=== PATIENT | male | born 1980 | race Caucasian/White ===

== ENCOUNTER 2016-08-24 03:33 | Outpatient (CLI) | payer MEDICARE | END 2016-08-24 03:34 | disposition critical access hospital (66) | DX: R10.9 Unspecified abdominal pain (principal) | CPT/HCPCS: A0425; A0427 ==

== ENCOUNTER 2016-08-24 04:03 | Emergency (ER) | payer MEDICARE ==
[2016-08-24] MEDS ORDERED: SODIUM CHLORIDE 0.9% 1,000 ML IV ONE (04:10)
--- NOTE | 2016-08-24 04:10 | ED Physician Documentation ---
PD HPI ABD PAIN - Stated complaint Stated Complaint: ABD PX - History obtained from History obtained from: Patient, EMS - History of Present Illness Timing - onset: How many days ago (2) Timing - details: Gradual onset, Still present Quality: Cramping, Aching Location: All over / everywhere, LLQ Worsened by: Eating Associated symptoms: Nausea, Constipation. No: Fever, Vomiting, Near syncope / syncope Similar symptoms before: Work up / diagnostics, Treatment, Follow up Recently seen: Not recently seen - Additional information Additional information: Patient is a 36 year old male with multiple abdominal surgeries and a history of crohns who is presenting to the emergency department for abdominal pain, nausea and constipation. Patient states that his last normal bowel movement was over two days ago. He reports that he is still able to pass gas. patient reports that it feels like he is obstructed. Enroute with ems patient was treated with 200 fentanyl and zofran. Patient states that he did do meth yesterday. Review of Systems Constitutional: denies: Fever, Chills, Weight Loss Eyes: denies: Loss of vision Throat: denies: Dental pain / toothache, Oral lesions / sores Cardiac: denies: Chest pain / pressure GI: reports: Abdominal Pain, Nausea, Constipation. denies: Vomiting, Diarrhea : denies: Dysuria, Unable to Void Skin: denies: Rash Musculoskeletal: denies: Neck pain, Back pain Neurologic: denies: Generalized weakness, Focal weakness, Numbness Psychiatric: denies: Depressed, Suicidal Immunocompromised: denies: Immunocompromised PD PAST MEDICAL HISTORY - Past Medical History Cardiovascular: None Respiratory: None Neuro: None Endocrine/Autoimmune: None GI: Crohn's disease, Other : None HEENT: None Psych: Anxiety, Panic attacks Musculoskeletal: Rheumatoid arthritis Derm: None - Past Surgical History Past Surgical History: Yes General: Bowel surgery Ortho: Other Derm: Other - Present Medications Home Medications: Ambulatory Orders Medication Instructions Recorded Confirmed Paroxetine HCl [Paxil] 1 tab PO DAILY 07/24/15 02/06/16 Sulfamethoxazole/Trimethoprim 1 each PO BID #14 tablet 02/06/16 [Sulfamethoxazole-Tmp Ds Tablet] oxyCODONE/ACET 5/325 [Percocet 5 1 - 2 each PO Q4-6H PRN #20 tablet 02/06/16 mg/325 mg] Ondansetron Odt [Zofran] 4 mg TL Q6H PRN #14 tablet 08/24/16 - Allergies Allergies/Adverse Reactions: Allergies Allergy/AdvReac Type Severity Reaction Status Date / Time esomeprazole AdvReac Severe Hallucinati Verified 08/24/16 04:11 ons morphine AdvReac Intermediate Hives Verified 08/24/16 04:11 - Social History Does the pt smoke?: Yes Smoking Status: Current some day smoker Does the pt drink ETOH?: No Does the pt have substance abuse?: No - Immunizations Immunizations are current?: Yes - POLST Patient has POLST: No PD ED PE NORMAL - Vitals Vital signs reviewed: Yes - General General: Alert and oriented X 3, No acute distress, Well developed/nourished - HEENT HEENT: Atraumatic, PERRL, Pharynx benign - Neck Neck: Supple, no meningeal sign, No JVD - Respiratory Respiratory: No respiratory distress, Clear bilaterally - Abdomen Abdomen: Soft - Derm Derm: Normal color, Warm and dry, No rash - Extremities Extremities: No deformity, No tenderness to palpate, Normal ROM s pain - Neuro Neuro: Alert and oriented X 3, roller print tender 2-12 intact, No motor deficit, No sensory deficit, Normal speech - Psych Psych: Normal mood, Normal affect PD ED PE EXPANDED - HEENT HEENT: Dry mucous membranes - Cardiac Cardiac: Tachy - Abdomen Abdomen: Tender to palpation, LUQ, Generalized/diffuse, Surgical scars, Other ( obese abdomen with multiple surgical scars and supraumbilical hernia). No: Distended Results - Vitals Vitals: Vital Signs - 24 hr 08/24/16 08/24/16 08/24/16 04:07 04:22 04:33 Temperature 37.1 C Heart Rate 129 H 130 H 131 H Respiratory 19 18 19 Rate Blood Pressure 139/88 H O2 Saturation 100 96 100 08/24/16 04:37 Temperature Heart Rate 129 H Respiratory Rate Blood Pressure 153/98 H O2 Saturation 99 Oxygen O2 Source Room air - Labs Labs: Laboratory Tests 08/24/16 08/24/16 04:18 04:18 WBC 13.3 H RBC 4.75 Hgb 14.8 Hct 43.0 MCV 90.4 MCH 31.2 H MCHC 34.5 RDW 13.7 Plt Count 286 MPV 6.2 L Neut # 10.0 H Lymph # 1.9 [place] # 1.1 H Eos # 0.0 Baso # 0.2 H Absolute Nucleated RBC 0.00 Nucleated RBCs 0.0 Sodium 137 Potassium 3.7 Chloride 102 Carbon Dioxide 24 Anion Gap 11.0 BUN 18 Creatinine 1.1 Estimated GFR (MDRD) 76 L Glucose 130 H Calcium 9.5 Phosphorus 4.6 Magnesium 2.0 Total Bilirubin 0.9 AST 49 H ALT 28 Alkaline Phosphatase 54 Total Protein 7.9 Albumin 5.0 Globulin 2.9 Albumin/Globulin Ratio 1.7 Lipase 19 L - Rads (name of study) ct abdomen and pelvis Radiology: Final report received (no bowel obstruction, rectus diastases, no new abnormality) PD MEDICAL DECISION MAKING - ED course Complexity details: reviewed old records, reviewed results, re-evaluated patient , considered differential, d/w patient ED course: Patient was seen and examined at bedside. labs were drawn, patient was started on a fluid bolus. Patient was treated with zofran and given oral contrast. When patient's labs came back he was found to have a leukocytosis. Imaging was ordered. When patient returned from imaging the results were reviewed. there was no acute abnormalities found on imaging. Patient did admit to recent meth use which would explain the persistent tachycardia. Patient required no further work up and was stable for discharge with outpatient follow up. Departure - Departure Disposition: 01 Home, Self Care Clinical Impression: Abdominal pain, Constipation Condition: Good Instructions: ED Abdominal Pain Unkn Cause Follow-Up: primary,care provider [Other] - Within 3 Days Prescriptions: Ondansetron Odt [Zofran] 4 mg TL Q6H PRN #14 tablet PRN Reason: Nausea / Vomiting Comments: Your diagnostics today were within normal limits. there were no new abnormalities on your imaging. the pain is likely at least part due to drug use as well as constipation. It is important that you stay well hydrated and adhere to good bowel hygiene including diet. You should follow up with your doctor this week. You can return to the emergency department at any time for new, worsening or uncontrollable symptoms.
[2016-08-24] MEDS ORDERED: ONDANSETRON 4 MG/2 ML VIAL ONE (04:15)
[2016-08-24] MEDS ORDERED: ONDANSETRON 4 MG/2 ML VIAL IVP STA (04:15)
[2016-08-24 04:51] LABS: BASOPHILS # (AUTO) 0.2 10^3/uL (0.0-0.1); BASOPHILS % (AUTO) 1.9 %; EOSINOPHILS % (AUTO) 0.4 %; HGB - HEMOGLOBIN 14.8 g/dL (14.0-18.0); LYMPHOCYTES # (AUTO) 1.9 10^3/uL (1.5-3.5); LYMPHOCYTES % (AUTO) 13.9 %; MEAN CORPUSCULAR HEMOGLOBIN 31.2 pg (27.0-31.0); MEAN CORPUSCULAR HGB CONC 34.5 g/dL (32.0-36.0); MEAN CORPUSCULAR VOLUME 90.4 fL (80.0-94.0); MEAN PLATELET VOLUME 6.2 fL (7.4-11.4); MONOCYTES # (AUTO) 1.1 10^3/uL (0.0-1.0); MONOCYTES % (AUTO) 8.5 %; NEUTROPHILS % (AUTO) 75.3 %; RED BLOOD COUNT 4.75 10^6/uL (4.70-6.10); RED CELL DISTRIBUTION WIDTH 13.7 % (12.0-15.0); UNCORRECTED WHITE BLOOD COUNT 13.3 x10^3/uL; WHITE BLOOD COUNT 13.3 x10^3/uL (4.8-10.8)
[2016-08-24 04:54] LABS: ALBUMIN/GLOBULIN RATIO 1.7 (1.0-2.2); BILIRUBIN,TOTAL 0.9 mg/dL (0.2-1.0); CALCIUM 9.5 mg/dL (8.5-10.3); CREATININE 1.1 mg/dL (0.6-1.2); PHOSPHORUS 4.6 mg/dL (2.5-4.6); POTASSIUM 3.7 mmol/L (3.5-5.0); TOTAL PROTEIN 7.9 g/dL (6.7-8.2)
[2016-08-24] MEDS ORDERED: IOPAMIDOL-300 100 ML VIAL IVP ONE (05:41)
[2016-08-24] MEDS ORDERED: IOPAMIDOL-300 50 ML VIAL PO ONE (05:41)
--- NOTE | 2016-08-24 06:06 | CT Preliminary Report ---
Exam: CT Abdomen/Pelvis W/ IMPRESSION: 1. No bowel obstruction seen. 2. Rectus diastases. Soft tissue thickening previously seen in the abdominal wall has essentially res olved. 3. No new abnormality seen. [facility] SITE ID: [id number]
--- NOTE | 2016-08-24 06:08 | CT Report ---
EXAM: CT ABDOMEN AND PELVIS EXAM DATE: 08/24/2016 05:23 AM. CLINICAL HISTORY: Multiple abdominal surgeries, abdominal pain, nausea and constipation. COMPARISONS: 10/07/2014. TECHNIQUE: Routine helical CT imaging was performed through the abdomen and pelvis. IV contrast: Mary Anne onic. Enteric contrast: Yes. Reconstructions: Coronal and sagittal. In accordance with CT protocol optimization, one or more of the following dose reduction techniques w ere utilized for this exam: automated exposure control, adjustment of mA and/or KV based on patient s ize, or use of iterative reconstructive technique. FINDINGS: Lung Bases: Unremarkable. Liver: No focal lesion identified. Gallbladder/Bile Ducts: Unremarkable. Spleen: Normal. Pancreas: Normal. Adrenal Glands: Normal. Kidneys: Normal. No masses or hydronephrosis. Peritoneal Cavity/Bowel: Again seen is postoperative change in the anterior abdominal wall with rectu s diastases. Soft tissue thickening previously seen in this area has resolved. No bowel obstruction i s seen. No diverticulitis is noted. No free air or free fluid is identified. No lymphadenopathy seen. Appendix is not seen. No evidence of appendicitis. Pelvic Organs: Normal. The bladder and visualized pelvic organs are within normal limits. Vasculature: No aneurysms or other significant abnormality. Bones: No significant abnormality. Other: None. IMPRESSION: 1. No bowel obstruction seen. 2. Rectus diastases. Soft tissue thickening previously seen in the abdominal wall has essentially res olved. 3. No new abnormality seen. [facility] Referring Provider Line: [phone] SITE ID: [id number]
[2016-08-24 06:13] VITALS: BP 160/91
== END 2016-08-24 06:18 | disposition home or self-care (01) ==
LOC: ED 04:03
DX: R10.84 Generalized abdominal pain (principal); K59.00 Constipation, unspecified; R11.0 Nausea; D72.829 Elevated white blood cell count, unspecified; F15.90 Other stimulant use, unspecified, uncomplicated; Z87.19 Personal history of other diseases of the digestive system; M06.9 Rheumatoid arthritis, unspecified; F17.200 Nicotine dependence, unspecified, uncomplicated
CPT/HCPCS: 36415; 74177; 80053; 83690; 83735; 84100; 85025; 96361; 96374; 99284; 99285; Q9967

== ENCOUNTER 2016-09-29 23:02 | Emergency (ER) | payer MEDICARE ==
--- NOTE | 2016-09-29 23:36 | ED Physician Documentation ---
History of Present Illness - Stated complaint Stated Complaint: SICK - Chief complaint Chief Complaint: Abd Pain - History obtained from History obtained from: Patient - History of Present Illness Timing: Yesterday Pain level now: 6 Improved by: no ameliorating factors Worsened by: no exacerbating factors - Additonal information Additional information: c/o upper abdominal pain, diarrhea since yesterday. Also c/o painful rash on his scalp x few days Review of Systems Constitutional: denies: Fever, Chills, Sweats Cardiac: reports: Reviewed and negative Respiratory: reports: Reviewed and negative GI: reports: Abdominal Pain, Diarrhea. denies: Nausea, Vomiting, Constipation : denies: Dysuria, Frequency Skin: reports: Rash PD PAST MEDICAL HISTORY - Past Medical History Cardiovascular: None Respiratory: None Neuro: None Endocrine/Autoimmune: None GI: Crohn's disease, Other : None HEENT: None Psych: Anxiety, Panic attacks Musculoskeletal: Rheumatoid arthritis Derm: None - Past Surgical History Past Surgical History: Yes General: Bowel surgery Ortho: Other Derm: Other - Present Medications Home Medications: Ambulatory Orders Medication Instructions Recorded Confirmed Paroxetine HCl [Paxil] 1 tab PO DAILY 07/24/15 02/06/16 Sulfamethox/Trimeth 800/160 1 each PO BID #14 tablet 09/30/16 09/30/16 [Bactrim Ds 800/160] - Allergies Allergies/Adverse Reactions: Allergies Allergy/AdvReac Type Severity Reaction Status Date / Time morphine AdvReac Intermediate Hives Verified 09/29/16 23:18 - Social History Does the pt smoke?: Yes Smoking Status: Current some day smoker Does the pt drink ETOH?: No Does the pt have substance abuse?: No - Immunizations Immunizations are current?: Yes - POLST Patient has POLST: No PD ED PE NORMAL - Vitals Vital signs reviewed: Yes - General General: Alert and oriented X 3, Well developed/nourished, Other (hyperkinetic movements. tangential answers, at times requires refocusing on questions being asked of him) - HEENT HEENT: PERRL, EOMI, Moist mucous membranes - Neck Neck: Supple, no meningeal sign - Cardiac Cardiac: RRR, No murmur - Respiratory Respiratory: No respiratory distress, Clear bilaterally - Abdomen Abdomen: Soft, Non tender, Non distended - Back Back: No CVA TTP - Derm Derm: Warm and dry PD ED PE EXPANDED - Derm SKin visual: 1 - rash (2-3cm diameter raised, confluent erythema with mild tenderness but no discharge or fluctuance) Results - Vitals Vitals: Vital Signs - 24 hr 09/29/16 09/30/16 09/30/16 23:12 00:22 01:08 Temperature 37.2 C 36.2 C L Heart Rate 139 H 110 H 85 Respiratory 24 22 16 Rate Blood Pressure 114/90 H 134/89 H 124/80 O2 Saturation 97 98 98 Oxygen O2 Source Room air - Labs Labs: Laboratory Tests 09/30/16 09/30/16 00:00 00:00 WBC 13.0 H RBC 4.90 Hgb 15.1 Hct 44.0 MCV 89.8 MCH 30.8 MCHC 34.2 RDW 13.2 Plt Count 246 MPV 6.1 L Neut # 9.9 H Lymph # 2.2 [place] # 0.8 Eos # 0.1 Baso # 0.0 Absolute Nucleated RBC 0.01 Nucleated RBCs 0.0 Sodium 136 Potassium 3.6 Chloride 103 Carbon Dioxide 23 Anion Gap 10.0 BUN 20 Creatinine 0.9 Estimated GFR (MDRD) 95 Glucose 157 H Calcium 10.0 Total Bilirubin 1.0 AST 36 ALT 37 Alkaline Phosphatase 61 Total Protein 7.8 Albumin 5.1 Globulin 2.7 Albumin/Globulin Ratio 1.9 Lipase 21 L PD MEDICAL DECISION MAKING - ED course Complexity details: reviewed old records, reviewed results, re-evaluated patient , considered differential, d/w patient ED course: Patient reported adequate symptoms relief after IV dilaudid, ativan, and IV fluids. He appeared significantly less hyperkinetic and was more clear and focused in his conversation with me. He expressed that he was comfortable with d /c. Departure - Departure Disposition: 01 Home, Self Care Clinical Impression: Abdominal pain Qualifiers: Qualified Code(s): R10.84 - Generalized abdominal pain Condition: Good Instructions: Abdominal Pain Follow-Up: Pati Camilo MD [Primary Care Provider] - Prescriptions: Sulfamethox/Trimeth 800/160 [Bactrim Ds 800/160] 1 each PO BID #14 tablet Discharge Date/Time: 09/30/16 01:08
[2016-09-29] MEDS ORDERED: LORazepam 2 MG/ML SYRINGE IVP STA (23:56)
[2016-09-29] MEDS ORDERED: HYDROmorphone 1 MG/ML SYRINGE IVP STA (23:58)
[2016-09-29] MEDS ORDERED: SULFAMETH/TRIMETH DS 800/160 MG TABLET PO STA (23:58)
[2016-09-29] MEDS ORDERED: SODIUM CHLORIDE 0.9% 1,000 ML IV STA (23:58)
[2016-09-30] MEDS ORDERED: HYDROmorphone 1 MG/ML SYRINGE ONE (00:07)
[2016-09-30] MEDS ORDERED: SULFAMETH/TRIMETH DS 800/160 MG TABLET PO ONE (00:08)
[2016-09-30] MEDS ORDERED: LORazepam 2 MG/ML SYRINGE ONE (00:08)
[2016-09-30 00:10] LABS: BASOPHILS % (AUTO) 0.3 %; EOSINOPHILS # (AUTO) 0.1 10^3/uL (0.0-0.7); EOSINOPHILS % (AUTO) 0.7 %; HGB - HEMOGLOBIN 15.1 g/dL (14.0-18.0); LYMPHOCYTES # (AUTO) 2.2 10^3/uL (1.5-3.5); LYMPHOCYTES % (AUTO) 16.7 %; MEAN CORPUSCULAR HEMOGLOBIN 30.8 pg (27.0-31.0); MEAN CORPUSCULAR HGB CONC 34.2 g/dL (32.0-36.0); MEAN CORPUSCULAR VOLUME 89.8 fL (80.0-94.0); MEAN PLATELET VOLUME 6.1 fL (7.4-11.4); MONOCYTES # (AUTO) 0.8 10^3/uL (0.0-1.0); MONOCYTES % (AUTO) 6.4 %; NEUTROPHILS # (AUTO) 9.9 10^3/uL (1.5-6.6); NEUTROPHILS % (AUTO) 75.9 %; RED CELL DISTRIBUTION WIDTH 13.2 % (12.0-15.0)
[2016-09-30 00:20] LABS: ALBUMIN/GLOBULIN RATIO 1.9 (1.0-2.2); CREATININE 0.9 mg/dL (0.6-1.2); POTASSIUM 3.6 mmol/L (3.5-5.0); TOTAL PROTEIN 7.8 g/dL (6.7-8.2)
[2016-09-30 01:11] VITALS: BP 124/80
== END 2016-09-30 01:08 | disposition home or self-care (01) ==
LOC: ED 23:02
DX: R10.84 Generalized abdominal pain (principal); R19.7 Diarrhea, unspecified; R21 Rash and other nonspecific skin eruption; K50.90 Crohn's disease, unspecified, without complications; M06.9 Rheumatoid arthritis, unspecified; F17.200 Nicotine dependence, unspecified, uncomplicated
CPT/HCPCS: 36415; 80053; 80306; 81001; 83690; 85025; 85651; 96361; 96374; 96375; 96376; 99283; 99284; A9270; J1170; J2060; 81003; 87086

== ENCOUNTER 2016-09-30 07:34 | Emergency (ER) | payer MEDICARE ==
--- NOTE | 2016-09-30 07:54 | ED Physician Documentation ---
PD HPI ABD PAIN - Stated complaint Stated Complaint: ABD PX - Chief complaint Chief Complaint: Abd Pain - History obtained from History obtained from: Patient - History of Present Illness Timing - onset: Yesterday Timing - duration: Days (1) Timing - details: Waxing and waning Quality: Cramping, Aching Location: All over / everywhere Radiation: No: Chest, Lower back Improved by: No: BM, Position Worsened by: Eating. No: Position, Palpation Associated symptoms: Nausea, Diarrhea (more copious and watery than he has had in the past with his UC.). No: Fever, Vomiting, Melena Similar symptoms before: Diagnosis (has had abd infections, adhesions with obstruction, prior colectomy due to UC/Crohns. Multiple abd surgeries, so has had various abd pain patterns in the past.) Recently seen: Emergency Dept (last night, with same, got meds in ED and felt better, but has cramps and more diarrhea this morning.) Review of Systems Constitutional: denies: Fever, Chills, Myalgias Nose: denies: Rhinorrhea / runny nose, Congestion Throat: denies: Sore throat Cardiac: denies: Chest pain / pressure Respiratory: denies: Dyspnea, Cough GI: reports: Abdominal Pain, Nausea, Diarrhea. denies: Abdominal Swelling, Vomiting, Constipation, Bloody / black stool : denies: Dysuria, Frequency Skin: reports: Lesions (scalp sore with local swelling and started Bactrim last night for it.). denies: Rash Psychiatric: reports: Anxiety. denies: Depressed, Suicidal PD PAST MEDICAL HISTORY - Past Medical History Past Medical History: Yes Cardiovascular: None Respiratory: None Neuro: None Endocrine/Autoimmune: None GI: Crohn's disease, Other : None HEENT: None Psych: Anxiety, Panic attacks Musculoskeletal: Rheumatoid arthritis Derm: None - Past Surgical History Past Surgical History: Yes General: Bowel surgery Ortho: Other Derm: Other - Present Medications Home Medications: Ambulatory Orders Medication Instructions Recorded Confirmed Paroxetine HCl [Paxil] 1 tab PO DAILY 07/24/15 02/06/16 Dexamethasone [Decadron] 4 mg PO DAILY #5 tablet 09/30/16 Diphenoxylate/Atropine [Lomotil] 1 each PO QID PRN #15 tablet 09/30/16 Ondansetron HCl [Zofran] 4 mg PO Q6H PRN #20 tablet 09/30/16 Sulfamethox/Trimeth 800/160 1 each PO BID #14 tablet 09/30/16 09/30/16 [Bactrim Ds 800/160] - Allergies Allergies/Adverse Reactions: Allergies Allergy/AdvReac Type Severity Reaction Status Date / Time morphine AdvReac Intermediate Hives Verified 09/29/16 23:18 - Social History Does the pt smoke?: Yes Smoking Status: Current some day smoker Does the pt drink ETOH?: No Does the pt have substance abuse?: No - Immunizations Immunizations are current?: Yes - POLST Patient has POLST: No PD ED PE NORMAL - Vitals Vital signs reviewed: Yes - General General: Alert and oriented X 3, Well developed/nourished, Other (anxious, fidgety and hyperdynamic (moving around a lot). Denies recent meth/drug use. ) - HEENT HEENT: Atraumatic, PERRL (nonicteric), Pharynx benign - Neck Neck: Supple, no meningeal sign, No adenopathy - Cardiac Cardiac: RRR (tachycardic though), No murmur - Respiratory Respiratory: Clear bilaterally - Abdomen Abdomen: Soft, Non tender, Non distended, No organomegaly. No: Normal bowel sounds (increased) - Male Male : Pt declined - Rectal Rectal: Deferred - Back Back: No CVA TTP - Derm Derm: Normal color, Warm and dry - Extremities Extremities: Normal ROM s pain, No edema, No calf tenderness / cord - Neuro Neuro: Alert and oriented X 3, No motor deficit, Normal speech - Psych Psych: Normal mood. No: Normal affect (moderately tweaky/restless. ) Results - Vitals Vitals: Vital Signs - 24 hr 09/30/16 09/30/16 07:37 11:08 Temperature 36.9 C Heart Rate 120 H 95 Respiratory 22 18 Rate Blood Pressure 124/81 H 109/58 L O2 Saturation 97 99 Oxygen O2 Source Room air - Labs Labs: Laboratory Tests 09/30/16 09/30/16 09/30/16 08:34 08:34 09:12 WBC 7.8 RBC 4.81 Hgb 14.7 Hct 43.1 MCV 89.6 MCH 30.6 MCHC 34.1 RDW 13.3 Plt Count 231 MPV 6.1 L Neut # 5.5 Lymph # 1.5 [place] # 0.7 Eos # 0.1 Baso # 0.0 Absolute Nucleated RBC 0.00 Nucleated RBCs 0.0 ESR 17 H Urine Color Urine Clarity Urine pH Ur Specific [place] Urine Protein Urine Glucose (UA) Urine Ketones Urine Occult Blood Urine Nitrite Urine Bilirubin Urine Urobilinogen Ur Leukocyte Esterase Urine RBC Urine WBC Ur Squamous Epith Cells Urine Bacteria Urine Casts Urine Mucus Ur Microscopic Review Urine Culture Comments Urine Opiates Screen NEGATIVE Ur Oxycodone Screen NEGATIVE Urine Methadone Screen NEGATIVE Ur Propoxyphene Screen NEGATIVE Ur Barbiturates Screen NEGATIVE Ur Tricyclics Screen NEGATIVE Ur Phencyclidine Scrn NEGATIVE Ur Amphetamine Screen POSITIVE H U Methamphetamines Scrn NEGATIVE U Benzodiazepines Scrn POSITIVE H Urine Cocaine Screen NEGATIVE U Cannabinoids Screen NEGATIVE 09/30/16 09:12 WBC RBC Hgb Hct MCV MCH MCHC RDW Plt Count MPV Neut # Lymph # [place] # Eos # Baso # Absolute Nucleated RBC Nucleated RBCs ESR Urine Color YELLOW Urine Clarity CLEAR Urine pH 6.0 Ur Specific [place] >=1.030 H Urine Protein TRACE Urine Glucose (UA) NEGATIVE Urine Ketones TRACE Urine Occult Blood MODERATE H Urine Nitrite NEGATIVE Urine Bilirubin NEGATIVE Urine Urobilinogen 0.2 (NORMAL) Ur Leukocyte Esterase NEGATIVE Urine RBC 6-10 H Urine WBC 0-3 Ur Squamous Epith Cells FEW Squamous Urine Bacteria Rare Urine Casts 6-10 Hyaline Casts Urine Mucus Marked Strands Ur Microscopic Review INDICATED Urine Culture Comments NOT INDICATED Urine Opiates Screen Ur Oxycodone Screen Urine Methadone Screen Ur Propoxyphene Screen Ur Barbiturates Screen Ur Tricyclics Screen Ur Phencyclidine Scrn Ur Amphetamine Screen U Methamphetamines Scrn U Benzodiazepines Scrn Urine Cocaine Screen U Cannabinoids Screen PD MEDICAL DECISION MAKING - ED course Complexity details: reviewed old records (did not have any diarrhea here, would have liked stool studies. He does have fidgety behavior but denies recent drug use. UTox is positive for amphet but not meth, consider false positive though his demeanor would suggest some withdrawal type issues. He does have prior GI problems, but does not have exam c/w obstruction nor acute abd at this time. ), reviewed results, considered differential (did not have any diarrhea here, would have liked stool studies. ), d/w patient Departure - Departure Disposition: 01 Home, Self Care Clinical Impression: Abdominal pain Diarrhea Qualifiers: Diarrhea type: unspecified type Qualified Code(s): R19.7 - Diarrhea, unspecified Condition: Stable Record reviewed to determine appropriate education?: Yes Follow-Up: Pati Camilo MD [Primary Care Provider] - Prescriptions: Dexamethasone [Decadron] 4 mg PO DAILY #5 tablet Diphenoxylate/Atropine [Lomotil] 1 each PO QID PRN #15 tablet PRN Reason: Diarrhea Ondansetron HCl [Zofran] 4 mg PO Q6H PRN #20 tablet PRN Reason: Nausea / Vomiting Comments: Drink lots of fluids. Tylenol 4 times daily for pain. Take prescribed medications. Decadron for 5 days, steroid in case this is flare of colitis. Lomotil for diarrhea as needed. Zofran if needed for nausea. Discharge Date/Time: 09/30/16 11:10
[2016-09-30] MEDS ORDERED: SODIUM CHLORIDE 0.9% 1,000 ML IV ONE (08:16)
[2016-09-30] MEDS ORDERED: ONDANSETRON 4 MG/2 ML VIAL IVP STA (08:17)
[2016-09-30] MEDS ORDERED: HYDROmorphone 1 MG/ML SYRINGE IVP STA ×2 (08:17→10:01)
[2016-09-30] MEDS ORDERED: DEXAMETHASONE 10 MG/ML VIAL IVP STA (08:17)
[2016-09-30] MEDS ORDERED: ONDANSETRON 4 MG/2 ML VIAL ONE (08:22)
[2016-09-30] MEDS ORDERED: DEXAMETHASONE 10 MG/ML VIAL ONE (08:22)
[2016-09-30] MEDS ORDERED: HYDROmorphone 1 MG/ML SYRINGE ONE ×2 (08:22→10:08)
[2016-09-30 08:48] LABS: BASOPHILS % (AUTO) 0.5 %; EOSINOPHILS # (AUTO) 0.1 10^3/uL (0.0-0.7); EOSINOPHILS % (AUTO) 1.1 %; HCT - HEMATOCRIT 43.1 % (42.0-52.0); HGB - HEMOGLOBIN 14.7 g/dL (14.0-18.0); LYMPHOCYTES # (AUTO) 1.5 10^3/uL (1.5-3.5); LYMPHOCYTES % (AUTO) 19.8 %; MEAN CORPUSCULAR HEMOGLOBIN 30.6 pg (27.0-31.0); MEAN CORPUSCULAR HGB CONC 34.1 g/dL (32.0-36.0); MEAN CORPUSCULAR VOLUME 89.6 fL (80.0-94.0); MEAN PLATELET VOLUME 6.1 fL (7.4-11.4); MONOCYTES # (AUTO) 0.7 10^3/uL (0.0-1.0); MONOCYTES % (AUTO) 8.4 %; NEUTROPHILS # (AUTO) 5.5 10^3/uL (1.5-6.6); NEUTROPHILS % (AUTO) 70.2 %; RED BLOOD COUNT 4.81 10^6/uL (4.70-6.10); RED CELL DISTRIBUTION WIDTH 13.3 % (12.0-15.0); UNCORRECTED WHITE BLOOD COUNT 7.8 x10^3/uL; WHITE BLOOD COUNT 7.8 x10^3/uL (4.8-10.8)
[2016-09-30] MEDS ORDERED: LORazepam 2 MG/ML SYRINGE IVP STA (10:01)
[2016-09-30 10:02] LABS: BILIRUBIN,URINE NEGATIVE (NEGATIVE); UA w/ MICROSCOPIC CHARGE YES
[2016-09-30] MEDS ORDERED: LORazepam 2 MG/ML SYRINGE ONE (10:09)
[2016-09-30 10:21] LABS: UR CULTURE IF IND NOT INDICATED; WBC,URINE 0-3 /HPF (0-3)
[2016-09-30] MEDS ORDERED: DIPHENOX/ATROPINE 2.5/0.025 MG TABLET PO STA (10:58)
[2016-09-30] MEDS ORDERED: DIPHENOX/ATROPINE 2.5/0.025 MG TABLET PO ONE (11:03)
[2016-09-30 11:09] VITALS: BP 109/58
== END 2016-09-30 11:10 | disposition home or self-care (01) ==
LOC: ED 07:34
DX: R10.84 Generalized abdominal pain (principal); R19.7 Diarrhea, unspecified; F17.200 Nicotine dependence, unspecified, uncomplicated
CPT/HCPCS: 36415; 80053; 80306; 81001; 81003; 83690; 85025; 85651; 87086; 99283